=== PATIENT | male | born 1940 | race Caucasian/White ===

== ENCOUNTER 2019-02-24 10:47 | Emergency (ER) | payer MEDICARE, OTHER ==
--- NOTE | 2019-02-24 11:19 | RAD ---
XR Finger(s) Rt Min 2 View HISTORY:Injuries to the tips of the index middle and ring fingers. COMPARISON: None. FINDINGS: There are arthritic changes of the DIP joints. There is an old appearing fracture on the do rsal side of the head of the middle phalanx of the index finger, this is corticated and is felt to represent an older injury. Clinical correlation is recommended. IMPRESSION: Probable old fracture involving the distal aspect of the middle phalanx of the index fing er.
[2019-02-24] MEDS ORDERED: Adacel (T-DAP) 0.5 ML SYRINGE ONE (11:37)
[2019-02-24] MEDS ORDERED: HYDROcodone/Acetaminophen 5/325 mg Tablet ONE (11:37)
== END 2019-02-24 12:25 | disposition home or self-care (01) ==
LOC: ERS 10:47
DX: S61.210A Laceration without foreign body of right index finger without damage to nail, initial encounter (principal); F41.9 Anxiety disorder, unspecified; Z79.82 Long term (current) use of aspirin; Z79.899 Other long term (current) drug therapy; W27.1XXA Contact with garden tool, initial encounter
CPT/HCPCS: 90471; 90715

== ENCOUNTER 2019-04-27 09:33 | Outpatient (CLI) | payer MEDICARE, OTHER ==
--- NOTE | 2019-04-27 15:44 | NM ---
WHOLE BODY BONE SCAN WITH TRIPLE PHASE IMAGING THROUGH THE KNEES: 04/27/19 HISTORY: Pain due to internal orthopedic prosthetic device/graft. Left knee pain. RADIOPHARMACEUTICAL: 13.5 millicuries technetium 99m-MDP injected intravenously. FINDINGS: No abnormal blood flow or blood pooling is seen in either knee. Delayed images demonstrate increased uptake in the left knee consistent with postop changes of knee replacement. Mild increased uptake in the right knee is consistent with degenerative change. There is focal increased uptake in the right great toe. Increased uptake in the lower lumbar spine is likely due to degenerative change. Tracer excretion through the kidneys is within normal limits. IMPRESSION: 1. No evidence of infection or loosening involving the left knee arthroplasty. 2. Focal increased uptake in the right toe is nonspecific and may be due to trauma, arthritis, o r infection. Clinical and radiographic correlation is recommended. POS: ZIA
== END 2019-04-27 09:34 | disposition home or self-care (01) ==
LOC: NM 09:33
PROVIDERS: ATTEND Specialist
DX: T84.84XA Pain due to internal orthopedic prosthetic devices, implants and grafts, initial encounter (principal); Z96.652 Presence of left artificial knee joint
CPT/HCPCS: 78315; A9503

== ENCOUNTER 2019-07-09 14:31 | Outpatient (CLI) | payer MEDICARE, OTHER ==
--- NOTE | 2019-07-09 16:37 | MRI ---
MRI LUMBAR SPINE WITHOUT CONTRAST: HISTORY: Lumbar radiculopathy COMPARISON: None. FINDINGS: Appropriate T1 marrow signal intensity of the lumbar vertebrae. Lumbar spine vertebral body height i s maintained. No fracture. Combination of type I and type II Modic changes at L4-L5. Appropriate signal intensity of the paraspinal muscles. Appropriate signal intensity of the visualiz ed solid organs. Small cysts in the left and right kidney. The conus medullaris terminates at the inferior aspect of L1. T12-L1: No significant central canal stenosis or significant neural foraminal narrowing. L1-L2: Mild loss of disc space height. Minimal left and right paracentral disc bulge. No significa nt central canal stenosis or significant neural foraminal narrowing. L2-L3: Broad-based disc bulge and minimal ligament flavum thickening result in mild central canal st enosis. Mild bilateral facet hypertrophy. Mild right and moderate left foraminal narrowing. L3-L4: Mild to moderate loss of disc space height. Broad based disc bulge, ligamentum flavum thicke syl and facet hypertrophy result in mild central canal stenosis. Moderate right and mild to moderate left neural foraminal narrowing. L4-L5: Moderate loss of disc space height. Broad based disc bulge with a central disc protrusion. Mild to moderate central canal stenosis. Mild to moderate right and mild left foraminal narrowing. L5-S1: Desiccation with moderate loss of disc space height. Broad-based disc bulge, mild ligament f lavum thickening and facet hypertrophy result in mild central canal stenosis. Minimal inferior disc extrusion. Small amount of fluid in both facet joints. Mild bilateral neural foraminal narrowi ng. IMPRESSION: Degenerative changes of the lumbar spine, as described above. Transcribed Date/Time: 07/09/2019 5:41 PM
== END 2019-07-09 14:32 | disposition home or self-care (01) ==
LOC: BICMRI 14:31
PROVIDERS: ATTEND Anesthesiology
DX: M47.26 Other spondylosis with radiculopathy, lumbar region (principal); M48.061 Spinal stenosis, lumbar region without neurogenic claudication; M48.07 Spinal stenosis, lumbosacral region
CPT/HCPCS: 72148

== ENCOUNTER 2019-09-10 05:52 | Outpatient (CLI) | payer MEDICARE, OTHER ==
[2019-09-10 10:33] LABS: #Basophils 0.1 thou/uL (0.0-0.2); #Eosinphils 0.2 thou/uL (0.0-0.7); #Lymphocytes 1.8 thou/uL (1.20-3.40); #Monocytes 0.4 thou/uL (0.11-0.59); %Basophils 1.1 % (0.0-1.0); %Lymphocytes 24.1 % (21.0-51.0); %Monocytes 5.7 % (0.0-10.0); %Neutrophils 66.1 % (42.0-75.0); Hemoglobin 15.5 g/dL (14.0-18.0); Mean Corpuscular HGB CONC 33.9 g/dL (32.0-36.0); Mean Corpuscular Volume 88.5 fL (78.0-98.0); Mean Platelet Volume 7.3 fL (7.4-10.4); Platelet Count 240 thou/uL (130-400); RBC Distribution Width 12.8 % (11.5-14.5); Red Blood Cell (RBC) Count 5.16 mill/uL (4.70-6.10); White Blood Cell (WBC) Count 7.5 thou/uL (4.8-10.8)
[2019-09-10 10:39] LABS: Prothrombin Time 13.3 SEC (12.0-14.7)
[2019-09-10 10:58] LABS: ALT (SGPT) 11 U/L (8-55); AST (SGOT) 15 U/L (5-34); Albumin 4.5 g/dL (3.4-4.8); Alkaline Phosphatase 59 U/L (40-110); Anion Gap 11 mmol/L (10-20); BUN (Urea Nitrogen) 16 mg/dL (8.4-25.7); Bilirubin, Total 0.8 mg/dL (0.2-1.2); Calc. Creatinine Clearance 0 mL/min (70-130); Calcium 9.9 mg/dL (7.8-10.44); Carbon Dioxide 29 mmol/L (23-31); Cardiac Risk 8.1 (Less than 4.5); Chloride 103 mmol/L (98-107); Cholesterol 290 mg/dl (< 200 Desired); Estimated GFR-MDRD 61; Globulin 2.8 g/dL (2.4-3.5); Glucose 109 mg/dL (83-110); HDL Cholesterol 36 mg/dL (>60 Neg Risk); Potassium 4.4 mmol/L (3.5-5.1); Protein, Total 7.3 g/dL (5.8-8.1); Sodium 139 mmol/L (136-145); Triglycerides 407 mg/dL (Less than 150)
== END 2019-09-10 05:53 | disposition home or self-care (01) ==
LOC: LABBT 05:52
PROVIDERS: ATTEND Internal Medicine Cardiovascular Disease
DX: Z01.812 Encounter for preprocedural laboratory examination (principal); R07.9 Chest pain, unspecified
CPT/HCPCS: 80053; 80061; 85025; 85610; 85730

== ENCOUNTER 2019-09-13 05:53 | Day surgery (SDC) | payer MEDICARE, OTHER ==
[2019-09-10 09:53] VITALS: BMI 29.5
[2019-09-13] MEDS ORDERED: Lidocaine 1% (PF) 30 ML VIAL ONE (06:35)
[2019-09-13] MEDS ORDERED: Heparin (Artline) 1,000 ML ONE (06:35)
[2019-09-13] MEDS ORDERED: Fentanyl 100 MCG/2 ML VIAL ONE (07:38)
[2019-09-13] MEDS ORDERED: Heparin 10,000 UNITS/1 ML VIAL ONE (07:39)
[2019-09-13] MEDS ORDERED: Midazolam HCl 2 mg/2 ml Vial ONE (07:39)
[2019-09-13] MEDS ORDERED: Nitroglycerin 100MG/250ML BOT 250 ML ONE (07:39)
[2019-09-13] MEDS ORDERED: Verapamil 5 MG/2 ML VIAL ONE (08:31)
[2019-09-13] MEDS ORDERED: Iopamidol 370 76% 100 ML VIAL ONE (10:17)
--- NOTE | 2019-09-13 14:04 | CON ---
DATE OF CONSULTATION: HISTORY OF PRESENT ILLNESS: This is a 78-year-old gentleman, relatively in good health, however, noticed when he carried his granddaughter, he would get chest tightness and pain. He saw Dr. Martins, who felt that his blood pressure was mildly elevated and started on medication. A stress test showed moderate anterior ischemia. The patient continued to have some symptoms, although they were improved with Imdur. He was referred for cardiac catheterization. PAST MEDICAL HISTORY: Includes untreated hyperlipidemia due to statin intolerance and anxiety disorder. PAST SURGICAL HISTORY: Includes cancer of the lip removed, left knee replacement with chronic pain, colon removal, vasectomy, and appendectomy. FAMILY HISTORY: He has a family history of heart disease. SOCIAL HISTORY: He is . He is a nonsmoker. He is retired, having been in the 20 years, worked for [employer] and various jobs. MEDICATIONS: Prior to visit with Dr. Martins included aspirin as well as Xanax 0.5 mg daily. Since being seen, he started taking [place] fish capsules, pantoprazole 40 mg daily, Plavix 75 a day, Imdur ER 30 a day, and lisinopril 5 mg a day. ALLERGIES: HE HAS ALLERGIES TO GABAPENTIN AND LYRICA, BOTH CAUSED HIM SKIN REACTIONS. PHYSICAL EXAMINATION: VITAL SIGNS: His weight is about 202 pounds, height 5 feet 9 inches. Heart rate 70 to 80, blood pressure 140 NECK: No carotid bruits (negative carotid ultrasound in 2017). CARDIAC: Regular rate and rhythm. No murmurs. LUNGS: Clear to auscultation. ABDOMEN: Soft and nontender. EXTREMITIES: He has palpable pedal pulses in both feet. He is left arm dominant with neg allens using plethysmography. Cardiac echo in Dr. Martins's office revealed normal EF and trace AI, trace MR, and trace TR. Cardiac cath showed severe three-vessel disease with a small circ with significant disease with probably non-bypassable ramus with significant disease that can be grafted possibly at the radial. He has an LAD with a [id number] disease proximally and then a critical lesion in the midportion. There is a diagonal branch with both branches having significant disease that probably can be grafted. The main right coronary artery has a 90% mid lesion, then a smaller PDA with about 60% stenosis. Possible targets include the second PDA branch and possibly the first PDA remained right. Went over procedure risks, complications, and expectations and we will intervene next week after he has been off his Plavix for 5 days. Job ID: [id number] [facility]ITAL[facility]ena
== END 2019-09-13 12:14 | disposition home or self-care (01) ==
LOC: CCL 05:53
PROVIDERS: ATTEND Internal Medicine Cardiovascular Disease
PROC: 4A023N7 Measurement of Cardiac Sampling and Pressure, Left Heart, Percutaneous Approach (ICD-10-PCS; principal; 2019-09-13)
PROC: B2111ZZ Fluoroscopy of Multiple Coronary Arteries using Low Osmolar Contrast (ICD-10-PCS; 2019-09-13)
DX: I25.10 Atherosclerotic heart disease of native coronary artery without angina pectoris (principal); I10 Essential (primary) hypertension; E78.00 Pure hypercholesterolemia, unspecified; E78.5 Hyperlipidemia, unspecified; F41.9 Anxiety disorder, unspecified; Z79.02 Long term (current) use of antithrombotics/antiplatelets; Z79.82 Long term (current) use of aspirin; Z79.899 Other long term (current) drug therapy
CPT/HCPCS: 93458; 99152; 99153; C1769; J1644; J2001; J2250; J3010

== ENCOUNTER 2019-09-17 06:18 | Inpatient (IN) | payer MEDICARE, OTHER ==
[2019-09-17] MEDS ORDERED: Albumin 5% 0 ML ONE (06:37)
[2019-09-17] MEDS ORDERED: Fentanyl 250 MCG/5 ML VIAL ONE (07:06)
[2019-09-17] MEDS ORDERED: Vecuronium 10 MG VIAL ONE ×2 (07:07→09:32)
[2019-09-17] MEDS ORDERED: Midazolam HCl 5 mg/5 ml Vial ONE (07:07)
[2019-09-17] MEDS ORDERED: Dexmedetomidine 200 MCG/2 ML VIAL ONE (07:07)
[2019-09-17] MEDS ORDERED: Heparin 10,000 UNITS/1 ML VIAL 30,000 UNITS in Sodium Chloride 0.9% 1,000 ML FS SCH (07:30)
[2019-09-17] MEDS ORDERED: Midazolam HCl 2 mg/2 ml Vial ONE (07:42)
[2019-09-17] MEDS ORDERED: Thrombin 5000 UNITS/5 ML VIAL ONE (09:32)
[2019-09-17] MEDS ORDERED: Papaverine 60 MG/2 ML VIAL ONE (09:32)
[2019-09-17] MEDS ORDERED: Protamine Sulfate 250 MG/25 ML VIAL ONE (09:32)
[2019-09-17] MEDS ORDERED: Cardioplegic Soln 1,000 ML BAG ONE (09:32)
[2019-09-17] MEDS ORDERED: Glycopyrrolate 0.2 MG/ML 5 ML SYRINGE ONE (09:32)
[2019-09-17] MEDS ORDERED: Dexamethasone 20 MG/5 ML VIAL ONE (09:32)
[2019-09-17] MEDS ORDERED: Sodium Bicarb 50 MEQ/50 ML Abboject 8.4% SYRINGE ONE (09:32)
[2019-09-17] MEDS ORDERED: Nitroglycerin 50 MG/250 ML BOT ONE (09:32)
[2019-09-17] MEDS ORDERED: Heparin 30,000 units/30 ml VIAL ONE (09:32)
[2019-09-17] MEDS ORDERED: Norepinephrine 4 MG/4 ML VIAL ONE (09:32)
[2019-09-17] MEDS ORDERED: Potassium Chloride 60 MEQ/30 ML VIAL ONE (09:32)
[2019-09-17] MEDS ORDERED: Ondansetron PF 4 MG/2 ML Vial ONE (09:32)
[2019-09-17] MEDS ORDERED: Calcium Chloride 1 GM/10 ML Abboject SYRINGE ONE (09:32)
[2019-09-17] MEDS ORDERED: Heparin 5,000 UNITS/ML VIAL ONE (09:32)
[2019-09-17] MEDS ORDERED: Lidocaine 2% PF 100 mg/5 ml Syringe ONE (09:32)
[2019-09-17] MEDS ORDERED: Magnesium Sulfate 1 GM/2 ML VIAL ONE (09:32)
[2019-09-17] MEDS ORDERED: Aminocaproic Acid 5 GM/20 ML VIAL ONE (09:32)
[2019-09-17] MEDS ORDERED: Lidocaine 1% PF 5 ML VIAL ONE (09:32)
[2019-09-17] MEDS ORDERED: PROPOFOL 200 MG/20 ML VIAL ONE (09:32)
[2019-09-17] MEDS ORDERED: PHENYLEPHRINE-NS 100 MCG/ML 10 ML SYRINGE ONE (12:28)
[2019-09-17] MEDS ORDERED: Mag-Al 1200 mg/1200 mg/30 ML UDCUP PO PRN (13:29)
[2019-09-17] MEDS ORDERED: HYDROcodone/Acetaminophen 5/325 mg Tablet PO PRN (13:29)
[2019-09-17] MEDS ORDERED: niCARdipine 25 MG in Sodium Chloride 0.9% 250 ML 250 ML IVPB PRN (13:29)
[2019-09-17] MEDS ORDERED: Post-Op Insulin Drip Protocol IVPB ONE (13:29)
[2019-09-17] MEDS ORDERED: Norepinephrine 8 MG/0.9% NS 250 ML IVPB PRN (13:29)
[2019-09-17] MEDS ORDERED: Acetaminophen 325 MG TAB PO PRN (13:29)
[2019-09-17] MEDS ORDERED: Hetastarch 6% 500 ML 500 ML IVPB PRN (13:29)
[2019-09-17] MEDS ORDERED: Morphine 2 MG/ML SYRINGE SLOW IVP PRN (13:29)
[2019-09-17] MEDS ORDERED: DOPamine 400 MG/D5W 250 ML 250 ML IVPB PRN (13:29)
[2019-09-17] MEDS ORDERED: Fentanyl 100 MCG/2 ML VIAL SLOW IVP PRN (13:29)
[2019-09-17] MEDS ORDERED: Guaifenesin DM 100-10/5 ML UDCUP PO PRN (13:29)
[2019-09-17] MEDS ORDERED: Potassium Chloride 20 MEQ/100 ML PREMIX BAG IVPB PRN (13:29)
[2019-09-17] MEDS ORDERED: Bisacodyl 10 MG SUPP PR PRN (13:29)
[2019-09-17] MEDS ORDERED: Ondansetron PF 4 MG/2 ML Vial IVP PRN (13:29)
[2019-09-17] MEDS ORDERED: Promethazine HCl 25 MG/ML VIAL IM PRN (13:29)
[2019-09-17] MEDS ORDERED: Bisacodyl 5 MG TAB PO PRN (13:29)
[2019-09-17] MEDS ORDERED: hydrALAZINE 20 MG/ML VIAL SLOW IVP PRN (13:29)
[2019-09-17] MEDS ORDERED: Nitroglycerin 50 MG/250 ML BOT 250 ML IVPB PRN (13:29)
[2019-09-17 13:41] LABS: #Basophils 0.1 thou/uL (0.0-0.2); #Eosinphils 0.1 thou/uL (0.0-0.7); #Lymphocytes 1.2 thou/uL (1.20-3.40); #Monocytes 0.3 thou/uL (0.11-0.59); #Neutrophils 10.1 thou/uL (1.40-6.50); %Basophils 0.5 % (0.0-1.0); %Eosinophils 1.1 % (0.0-10.0); %Lymphocytes 10.5 % (21.0-51.0); %Monocytes 2.5 % (0.0-10.0); %Neutrophils 85.5 % (42.0-75.0); Hemoglobin 11.7 g/dL (14.0-18.0); Mean Corpuscular HGB CONC 33.8 g/dL (32.0-36.0); Mean Platelet Volume 7.7 fL (7.4-10.4); Platelet Count 145 thou/uL (130-400); RBC Distribution Width 12.5 % (11.5-14.5); Red Blood Cell (RBC) Count 3.91 mill/uL (4.70-6.10); White Blood Cell (WBC) Count 11.9 thou/uL (4.8-10.8)
[2019-09-17 13:42] LABS: INR-International Normal Ratio 1.3; Prothrombin Time 16.5 SEC (12.0-14.7)
[2019-09-17 13:43] LABS: PTT 29.7 SEC (22.9-36.1)
--- NOTE | 2019-09-17 13:44 | RAD ---
Portable frontal chest radiograph: 09/17/2019 COMPARISON: 03/25/2017 HISTORY: Evaluate chest following open heart surgery FINDINGS: New midline sternotomy wires. There is a right-sided vascular catheter with distal tip over lying the region of the right atrium. Cardiac silhouette is prominent. There is a drainage catheter overlying the left lung base. No lobar consolidation or alveolar edema. IMPRESSION: Postoperative changes as detailed above.
[2019-09-17] MEDS ORDERED: Dextrose 50% Abboject 50 ML SYRINGE SLOW IVP PRN (13:57)
[2019-09-17] MEDS ORDERED: Insulin Regular 300 UNITS/3 ML VIAL SC PRN (13:57)
[2019-09-17] MEDS ORDERED: Dextrose 5% in Water 1,000 ML IV PRN (13:57)
[2019-09-17] MEDS ORDERED: HUMULIN R 100 UNITS in Sodium Chloride 0.9% 100 ML IVPB SCH (13:57)
[2019-09-17] MEDS ORDERED: Magnesium 2 GM/50 ML 2 GM in Premix Bag 1 BAG IVPB SCH (14:00)
[2019-09-17 14:09] LABS: Anion Gap 10 mmol/L (10-20); BUN (Urea Nitrogen) 18 mg/dL (8.4-25.7); Calc. Creatinine Clearance 89 mL/min (70-130); Calcium 7.6 mg/dL (7.8-10.44); Carbon Dioxide 22 mmol/L (23-31); Chloride 109 mmol/L (98-107); Estimated GFR-MDRD 80; Glucose 134 mg/dL (83-110); Potassium 4.1 mmol/L (3.5-5.1); Sodium 137 mmol/L (136-145)
[2019-09-17] MEDS: CEFAZOLIN 2 GM in Premix Bag 1 BAG IVPB SCH (16:24)
[2019-09-17] MEDS: Lactated Ringer's 1,000 ML IV SCH (16:36)
[2019-09-17] MEDS: Ketorolac Tromethamine 30 MG/ML VIAL IVP SCH (17:07)
[2019-09-17 19:17] LABS: Hemoglobin 13.7 g/dL (14.0-18.0)
[2019-09-17 19:30] LABS: Potassium 4.4 mmol/L (3.5-5.1)
--- NOTE | 2019-09-17 19:30 | CON ---
DATE OF CONSULTATION: 09/17/2019 REASON FOR CONSULTATION: Post CABG. HISTORY OF PRESENT ILLNESS: Mr. Duron is a very pleasant 78-year-old white gentleman, who comes to the hospital for planned CABG. He had a heart catheterization about a week ago. He was found to have multivessel disease. He was brought today for CABG. He underwent said procedure earlier today by Dr. Mendez. He did well. He is now extubated on my evaluation, only on a very low-dose dobutamine and his blood pressure is in the 130s, so this will certainly be weaned off pretty soon. He only admits to just soreness all over the place, but no other issues otherwise. PAST MEDICAL HISTORY: 1. Coronary artery disease. 2. 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 3. Anxiety disorder. PAST SURGICAL HISTORY: 1. Vasectomy. 2. Colon resection. 3. Appendectomy. 4. Removal of lip cancer. SOCIAL HISTORY: No alcohol, tobacco, or drugs. FAMILY HISTORY: No early coronary artery disease. REVIEW OF SYSTEMS: A 12-point review of systems was done and was all negative unless stated in the history of present illness. ALLERGIES: NO KNOWN DRUG ALLERGIES. OUTPATIENT MEDICATIONS: Include; 1. Alprazolam. 2. Imdur 30 mg a day. 3. Clopidogrel 75 mg a day. 4. Aspirin 81 a day. 5. Pantoprazole 40 mg a day. 6. Lisinopril 5 mg a day. 7. Krill oil daily. ALLERGIES: 1. GABAPENTIN. 2. LYRICA. PHYSICAL EXAMINATION: VITAL SIGNS: Temperature 96.5, pulse 81, respiratory rate 18, saturating 99% on room air, blood pressure 113/62. GENERAL: Awake, alert, oriented x3. No distress. HEENT: Normocephalic, atraumatic. NECK: Supple. LUNGS: Clear. CARDIOVASCULAR: S1, S2. Three-component rub. ABDOMEN: Soft. EXTREMITIES: Trace edema. SKIN: Warm and dry. LABORATORY DATA: Laboratory work was reviewed. CBC with a white count of 11, hemoglobin 11.7, hematocrit 34, and platelet count of 145. Coags were reviewed. Chemistries were unremarkable. Glucose was 134, calcium was 7.6. Chest x-ray was reviewed. ASSESSMENT: 1. Multivessel coronary artery disease, status post coronary artery bypass grafting. 2. Hyperlipidemia. PLAN: 1. Continue aspirin. He is intolerant to statins, so we will hold on this for now. He will probably need Repatha or Praluent as an outpatient. 2. Continue supportive care. 3. Dopamine to be weaned off in the next 2 hours. 4. We will start physical therapy in the next few days. Thank you for letting us participate in the care of your patient. Job ID: [id number]
[2019-09-17] MEDS: Famotidine/PF 20 mg/2ml Vial SLOW IVP SCH (22:17)
[2019-09-17] MEDS: Fentanyl 100 MCG/2 ML VIAL SLOW IVP PRN (23:00)
[2019-09-18] MEDS: CEFAZOLIN 2 GM in Premix Bag 1 BAG IVPB SCH ×2 (00:14→07:17)
[2019-09-18] MEDS: Ketorolac Tromethamine 30 MG/ML VIAL IVP SCH ×4 (00:15→18:01)
[2019-09-18] MEDS: Fentanyl 100 MCG/2 ML VIAL SLOW IVP PRN (04:02)
[2019-09-18] MEDS: Lactated Ringer's 1,000 ML IV SCH ×2 (04:05→18:42)
[2019-09-18] MEDS: HYDROcodone/Acetaminophen 5/325 mg Tablet PO PRN ×2 (04:12→13:21)
[2019-09-18 04:29] LABS: #Lymphocytes 1.1 thou/uL (1.20-3.40); #Monocytes 0.8 thou/uL (0.11-0.59); #Neutrophils 8.6 thou/uL (1.40-6.50); %Basophils 0.2 % (0.0-1.0); %Eosinophils 0.1 % (0.0-10.0); %Lymphocytes 10.2 % (21.0-51.0); %Monocytes 7.3 % (0.0-10.0); %Neutrophils 82.2 % (42.0-75.0); Hemoglobin 12.7 g/dL (14.0-18.0); Mean Corpuscular HGB CONC 33.1 g/dL (32.0-36.0); Mean Corpuscular Hemoglobin 29.5 pg (27.0-31.0); Mean Corpuscular Volume 89.2 fL (78.0-98.0); Mean Platelet Volume 7.6 fL (7.4-10.4); Platelet Count 188 thou/uL (130-400); RBC Distribution Width 12.6 % (11.5-14.5); White Blood Cell (WBC) Count 10.4 thou/uL (4.8-10.8)
[2019-09-18 04:59] LABS: Anion Gap 14 mmol/L (10-20); BUN (Urea Nitrogen) 18 mg/dL (8.4-25.7); Calc. Creatinine Clearance 74 mL/min (70-130); Carbon Dioxide 19 mmol/L (23-31); Chloride 108 mmol/L (98-107); Estimated GFR-MDRD 64; Glucose 161 mg/dL (83-110); Potassium 4.3 mmol/L (3.5-5.1); Sodium 137 mmol/L (136-145)
[2019-09-18] MEDS ORDERED: Cyclobenzaprine 10 MG TAB PO SCH (06:15)
--- NOTE | 2019-09-18 08:39 | RAD ---
CHEST ONE VIEW: INDICATIONS: History of open heart surgery. COMPARISON: Prior exam dated 09/17/2019. FINDINGS/IMPRESSION: Cardiomegaly and right subclavian central venous catheter is stable. Left-sided thoracostomy tube is unchanged. No pneumothorax is evident. POS: TPC
[2019-09-18] MEDS: Polyethylene Glycol 3350 17 GM Packet PO SCH (08:42)
[2019-09-18] MEDS: Famotidine/PF 20 mg/2ml Vial SLOW IVP SCH (08:42)
--- NOTE | 2019-09-18 08:44 | OP ---
DATE OF PROCEDURE: 09/17/2019 PREOPERATIVE DIAGNOSIS: Coronary artery disease. PROCEDURES PERFORMED: Coronary artery bypass graft x5, left internal mammary artery to the left anterior descending, saphenous vein sequential graft to the right PDA, 1.5 mm right posterior lateral, 1.5 mm saphenous vein sequential to the diagonal branch 1 and 2, and saphenous vein graft to an intramyocardial ramus. [employer]: Juan Diego. TRANSFUSION: None. DESCRIPTION OF PROCEDURE: After adequate anesthesia had been obtained, I performed an endovascular vein harvest of the left greater saphenous vein after prepping and draping. Median sternotomy was then performed, following which the left internal mammary was harvested entering the left pleura and one small area. The mammary was divided after heparinization and passed posterior to the thymus gland, treated with papaverine. Aorta and right atrium were cannulated. Cardiopulmonary bypass begun. Aorta was cross clamped and after a liter of cold blood cardioplegia, 4 distal anastomosis were completed including sequential PDA posterior and lateral and sequential diagonal one and diagonal two. Across-clamp was removed. Partial occluding clamp placed in the right coronary and ramus. The vein grafts were anastomosed to the aortic root and marked with rings. Following removal of the partial occluding clamp, the diagonal vein grafts were anastomosed to the side of the ramus graft. The patient was weaned from cardiopulmonary bypass. Cannula was removed and protamine was given systemically. Grafts lie nicely in the pericardium. Mediastinal and left pleural drains were placed and the sternum was reapproximated with #7 interrupted wire using vancomycin paste, platelet rich blood and platelet poor plasma on the sternum prior to closure with sternal wires. Subcutaneous tissue and skin were closed in layers. Job ID: [id number]
[2019-09-18] MEDS ORDERED: Aspirin 325 MG TAB PO SCH (09:00)
[2019-09-18] MEDS ORDERED: Prevnar 13-Val Conj/PF 0.5 ML SYRINGE IM ONE (12:00)
[2019-09-18] MEDS ORDERED: FLU VACC TS2019-20(65YR UP)/PF 180 MCG/0.5 ML SYRINGE IM ONE (12:00)
--- NOTE | 2019-09-18 18:29 | PDOC.CPN ---
- Subjective Date: 09/18/19 Time: 18:28 Interval history: He is doing much better. No BM yet but passing gas. He is sitting up eating dinner on my evaluation. - Review of Systems General: denies: fever/chills, weight/appetite/sleep changes, night sweats, fatigue Respiratory: denies: cough, congestion, shortness of breath, exercise intolerance Cardiovascular: denies: chest pain, palpitation, edema, paroxysmal nocturnal dyspnea, orthopnea Gastrointestinal: denies: nausea, vomiting, diarrhea, constipation, abd pain, GI bleeding Musculoskeletal: denies: pain, tenderness, stiffness, swelling, arthritis/ arthralgias Neurological: denies: numbness, syncope, seizure, weakness - Objective Allergies/Adverse Reactions: Allergies Allergy/AdvReac Type Severity Reaction Status Date / Time gabapentin Allergy Verified 09/14/19 16:40 pregabalin [From Lyrica] Allergy Verified 09/14/19 16:40 Visit Medications: Current Medications Acetaminophen (Tylenol) 650 mg PO Q6H PRN PRN Reason: Headache/Fever/Mild Pain (1-3) Hydrocodone Bitart/Acetaminophen ([place] 5/325) 1 tab PO Q4H PRN PRN Reason: Moderate Pain (4-6) Hydrocodone Bitart/Acetaminophen ([place] 5/325) 2 tab PO Q4H PRN PRN Reason: Severe Pain (7-10) Last Admin: 09/18/19 13:21 Dose: 2 tab Al Hydroxide/Mg Hydroxide (Maalox) 30 ml PO Q4H PRN PRN Reason: Indigestion Albuterol/Ipratropium (Duoneb) 3 ml NEB Q6H PRN PRN Reason: SHORTNESS OF BREATH Aspirin (Aspirin) 325 mg PO DAILY [facility] Last Admin: 09/18/19 08:41 Dose: 325 mg Bisacodyl (Dulcolax) 10 mg PO Q12H PRN PRN Reason: Constipation Bisacodyl (Dulcolax) 10 mg [place] Q12H PRN PRN Reason: Constipation Dextrose/Water (Dextrose 50%) 25 gm SLOW IVP PRN PRN PRN Reason: PER HYPOGLYCEMIC PROTOCOL Famotidine (Pepcid) 20 mg SLOW IVP Q12HR [facility] Last Admin: 09/18/19 08:42 Dose: 20 mg Fentanyl (Sublimaze) 25 mcg SLOW IVP Q2H PRN PRN Reason: Moderate Pain (4-6) Stop: 09/19/19 12:39 Last Admin: 09/18/19 04:02 Dose: 25 mcg Fentanyl (Sublimaze) 50 mcg SLOW IVP Q2H PRN PRN Reason: Severe Pain (7-10) Stop: 09/19/19 12:39 Last Admin: 09/17/19 14:29 Dose: 50 mcg Glucagon (Glucagon) 1 mg SC PRN PRN PRN Reason: PER HYPOGLYCEMIC PROTOCOL Guaifenesin/Dextromethorphan (Robitussin Dm) 15 ml PO Q4H PRN PRN Reason: Cough Hydralazine HCl (Apresoline) 10 mg SLOW IVP Q6H PRN PRN Reason: To Maintain SBP< 140mmHG Dopamine HCl/Dextrose (Dopamine 400 Mg/D5w 250 Ml) 250 mls @ 0 mls/hr IVPB PRN PRN; Protocol PRN Reason: To maintain SBP > 90 mmHG Last Admin: 09/17/19 16:34 Dose: 250 mls Norepinephrine Bitartrate (Levophed) 250 mls @ 0 mls/hr IVPB PRN PRN; Protocol PRN Reason: To maintain SBP > 90 mmHG Nicardipine HCl 25 mg/ Sodium (Chloride) 260 mls @ 0 mls/hr IVPB INF PRN; Protocol PRN Reason: To Maintain SBP< 140mmHG Nitroglycerin/Dextrose (Nitroglycerin 50 Mg/250 Ml Bot) 250 mls @ 0 mls/hr IVPB PRN PRN; Protocol PRN Reason: To Maintain SBP< 140mmHG Insulin Human Regular 100 (units/ Sodium Chloride) 101 mls @ 0 mls/hr IVPB INF ADAM; Protocol Dextrose/Water (D5w) 1,000 mls @ 0 mls/hr IV INF PRN PRN Reason: PRN HYPOGLYCEMIC PROTOCOL Lactated Ringer's (Lactated Ringer's) 1,000 mls @ 75 mls/hr IV .[id number] ADAM Last Admin: 09/18/19 04:05 Dose: 1,000 mls Insulin Human Regular (Humulin R) 0 units SC Q4H PRN; Protocol PRN Reason: POST OP SLIDING SCALE Morphine Sulfate (Morphine) 2 mg SLOW IVP Q15MIN PRN PRN Reason: Severe Pain (7-10) Ondansetron HCl (Zofran) 4 mg IVP Q6H PRN PRN Reason: Nausea/Vomiting Last Admin: 09/17/19 16:38 Dose: 4 mg Polyethylene Glycol (Miralax) 17 gm PO DAILY [facility] Last Admin: 09/18/19 08:42 Dose: 17 gm Potassium Chloride (Kcl) 20 meq IVPB PRN PRN PRN Reason: K level </= 4.0 Promethazine HCl (Phenergan) 6.25 mg IM Q4H PRN PRN Reason: Nausea/Vomiting Vital Signs & Weight: Vital Signs Temp Pulse Ox 09/18/19 15:00 98.1 F 09/18/19 11:00 98.5 F 09/18/19 08:00 99 09/18/19 07:00 98.6 F 96 Weight 205 lb 11.06 oz - Physical Exam General: alert & oriented x3 HEENT: mucus membranes moist Neck: supple neck Cardiac: regular rate and rhythm Lungs: normal breath sounds Neuro: grossly intact Abdomen: active bowel sounds Extremities: no edema Skin: clear Musculoskeletal: no pain - Labs Result Diagrams: 09/18/19 04:05 09/18/19 04:05 - Telemetry Sinus rhythms and dysrhythmias: sinus rhythm - Assessment/Plan Assessment/Plan: 1. Multivessel CAD. 2. S/P CABG x 5 LEVY to LAD, SVG sequential to RPDA and PL, SVG sequential to D1 and D2, SVG to Intramyocardial Ramus. 3. Hyperlipidemia. PLAN: - Doing well. - Increase PT as tolerated. - Aspirin and station for life. - BB and ACEI once BP allows.
[2019-09-18] MEDS: Atorvastatin Calcium 40 MG TAB PO SCH (20:30)
[2019-09-18] MEDS ORDERED: Famotidine 20 MG TAB PO SCH (21:00)
[2019-09-19 04:01] LABS: #Basophils 0.1 thou/uL (0.0-0.2); #Eosinphils 0.1 thou/uL (0.0-0.7); #Lymphocytes 1.8 thou/uL (1.20-3.40); #Monocytes 0.8 thou/uL (0.11-0.59); #Neutrophils 8.1 thou/uL (1.40-6.50); %Basophils 0.5 % (0.0-1.0); %Eosinophils 0.9 % (0.0-10.0); %Lymphocytes 16.4 % (21.0-51.0); %Monocytes 7.3 % (0.0-10.0); %Neutrophils 74.8 % (42.0-75.0); Hemoglobin 12.1 g/dL (14.0-18.0); Mean Corpuscular HGB CONC 33.9 g/dL (32.0-36.0); Mean Corpuscular Hemoglobin 30.4 pg (27.0-31.0); Mean Corpuscular Volume 89.7 fL (78.0-98.0); Mean Platelet Volume 7.6 fL (7.4-10.4); Platelet Count 156 thou/uL (130-400); RBC Distribution Width 12.6 % (11.5-14.5); Red Blood Cell (RBC) Count 3.98 mill/uL (4.70-6.10); White Blood Cell (WBC) Count 10.9 thou/uL (4.8-10.8)
[2019-09-19 04:18] LABS: Anion Gap 12 mmol/L (10-20); BUN (Urea Nitrogen) 21 mg/dL (8.4-25.7); Calc. Creatinine Clearance 83 mL/min (70-130); Carbon Dioxide 23 mmol/L (23-31); Chloride 105 mmol/L (98-107); Estimated GFR-MDRD 74; Glucose 127 mg/dL (83-110); Potassium 4.3 mmol/L (3.5-5.1); Sodium 136 mmol/L (136-145)
[2019-09-19 05:55] VITALS: BMI 30.2
[2019-09-19] MEDS ORDERED: Bisacodyl 10 MG SUPP PR PRN (07:18)
[2019-09-19] MEDS ORDERED: HYDROcodone/Acetaminophen 5/325 mg Tablet PO PRN (07:18)
[2019-09-19] MEDS ORDERED: Fentanyl 100 MCG/2 ML VIAL SLOW IVP PRN (07:18)
[2019-09-19] MEDS ORDERED: Guaifenesin DM 100-10/5 ML UDCUP PO PRN (07:18)
[2019-09-19] MEDS ORDERED: Acetaminophen 325 MG TAB PO PRN (07:18)
[2019-09-19] MEDS ORDERED: Mag-Al 1200 mg/1200 mg/30 ML UDCUP PO PRN (07:18)
[2019-09-19] MEDS ORDERED: Mineral Oil ENEMA PR PRN (07:18)
[2019-09-19] MEDS ORDERED: Nitroglycerin 0.4 MG TAB (25 Tab Bottle) SL PRN (07:18)
[2019-09-19] MEDS ORDERED: Bisacodyl 5 MG TAB PO PRN (07:18)
[2019-09-19] MEDS ORDERED: Ondansetron PF 4 MG/2 ML Vial IVP PRN (07:18)
[2019-09-19] MEDS: Famotidine 20 MG TAB PO SCH ×2 (08:15→20:37)
[2019-09-19] MEDS: Furosemide 40 MG TAB PO SCH (08:15)
[2019-09-19] MEDS: Polyethylene Glycol 3350 17 GM Packet PO SCH (08:15)
[2019-09-19] MEDS: Potassium Chloride 10 MEQ TAB PO SCH (08:15)
[2019-09-19] MEDS: Aspirin 325 mg Enteric Coated Tablet PO SCH (08:15)
--- NOTE | 2019-09-19 08:33 | RAD ---
PORTABLE CHEST 1 VIEW: DATE: 09/19/2019. TIME: 4:40 a.m. HISTORY: Postop open heart surgery. FINDINGS/IMPRESSION: No significant interval change is seen since the previous day's exam. POS: ZIA
--- NOTE | 2019-09-19 17:41 | PDOC.CPN ---
- Subjective Date: 09/19/19 Time: 17:39 Interval history: He is doing well. He denies any chest pain, tightness, pressure. He has not had a BM but is passing gas. - Review of Systems General: denies: fever/chills, weight/appetite/sleep changes, night sweats, fatigue Respiratory: denies: cough, congestion, shortness of breath, exercise intolerance Cardiovascular: denies: chest pain, palpitation, edema, paroxysmal nocturnal dyspnea, orthopnea Gastrointestinal: denies: nausea, vomiting, diarrhea, constipation, abd pain, GI bleeding Musculoskeletal: denies: pain, tenderness, stiffness, swelling, arthritis/ arthralgias Neurological: denies: numbness, syncope, seizure, weakness - Objective Allergies/Adverse Reactions: Allergies Allergy/AdvReac Type Severity Reaction Status Date / Time gabapentin Allergy Verified 09/14/19 16:40 pregabalin [From Lyrica] Allergy Verified 09/14/19 16:40 Visit Medications: Current Medications Acetaminophen (Tylenol) 650 mg PO Q6H PRN PRN Reason: Headache/Fever or Pain Hydrocodone Bitart/Acetaminophen ([place] 5/325) 1 tab PO Q4H PRN PRN Reason: Moderate Pain (4-6) Hydrocodone Bitart/Acetaminophen ([place] 5/325) 2 tab PO Q4H PRN PRN Reason: Severe Pain (7-10) Al Hydroxide/Mg Hydroxide (Maalox) 30 ml PO Q4H PRN PRN Reason: Indigestion Alprazolam (Xanax) 0.5 mg PO [facility] Aspirin (Ecotrin) 325 mg PO DAILY [facility] Last Admin: 09/19/19 08:15 Dose: 325 mg Atorvastatin Calcium (Lipitor) 40 mg PO HS [facility] Last Admin: 09/18/19 20:30 Dose: 40 mg Bisacodyl (Dulcolax) 10 mg PO Q12H PRN PRN Reason: Constipation Bisacodyl (Dulcolax) 10 mg [place] Q12H PRN PRN Reason: Constipation Famotidine (Pepcid) 20 mg PO BID [facility] Last Admin: 09/19/19 08:15 Dose: 20 mg Fentanyl (Sublimaze) 25 mcg SLOW IVP Q2H PRN PRN Reason: Moderate breakthrough pain Furosemide (Lasix) 40 mg PO DAILY [facility] Last Admin: 09/19/19 08:15 Dose: 40 mg Guaifenesin/Dextromethorphan (Robitussin Dm) 15 ml PO Q4H PRN PRN Reason: Cough Mineral Oil (Fleet Mineral Oil) 133 ml [place] DAILYPRN PRN PRN Reason: Constipation Nitroglycerin (Nitrostat) 0.4 mg SL Q5MIN PRN PRN Reason: Chest Pain Ondansetron HCl (Zofran) 4 mg IVP Q6H PRN PRN Reason: Nausea/Vomiting Polyethylene Glycol (Miralax) 17 gm PO DAILY [facility] Last Admin: 09/19/19 08:15 Dose: 17 gm Potassium Chloride (Klor-Con 10) 10 meq PO QAM-WM [facility] Last Admin: 09/19/19 08:15 Dose: 10 meq Vital Signs & Weight: Vital Signs Temp Pulse Pulse Pulse Resp BP BP 09/19/19 14:32 99.8 F H 100 16 09/19/19 13:47 124 H 96 152/86 H 141/77 H 09/19/19 12:00 99.1 F 09/19/19 09:10 92 115 H 129/72 163/81 H 09/19/19 08:00 100.2 F H BP Pulse Ox Pulse Ox Pulse Ox 09/19/19 14:32 149/72 H 96 09/19/19 13:47 98 93 L 09/19/19 12:00 09/19/19 09:10 96 96 09/19/19 08:00 97 Weight 198 lb 6.656 oz - Physical Exam General: alert & oriented x3 HEENT: mucus membranes moist Neck: supple neck Cardiac: regular rate and rhythm, no murmur Lungs: clear to auscultation Neuro: grossly intact Abdomen: active bowel sounds, soft, non-tender Extremities: no edema Skin: clear Musculoskeletal: no pain - Labs Result Diagrams: 09/19/19 03:50 09/19/19 03:50 - Telemetry Sinus rhythms and dysrhythmias: sinus rhythm - Assessment/Plan Assessment/Plan: 1. Multivessel CAD. 2. S/P CABG x 5 LEVY to LAD, SVG sequential to RPDA and PL, SVG sequential to D1 and D2, SVG to Intramyocardial Ramus. 3. Hyperlipidemia. PLAN: - Doing well. - Increase PT as tolerated. - Aspirin and station for life. - Will start low dose BB tomorrow and ACEI tomorrow if BP still adequate.
[2019-09-19] MEDS: HYDROcodone/Acetaminophen 5/325 mg Tablet PO PRN (18:30)
[2019-09-19] MEDS: ALPRAZolam 0.5 MG TAB PO SCH (20:37)
[2019-09-19] MEDS: Atorvastatin Calcium 40 MG TAB PO SCH (20:37)
[2019-09-20] MEDS: Carvedilol 3.125 MG TAB PO SCH ×2 (08:32→16:18)
[2019-09-20] MEDS: Aspirin 325 mg Enteric Coated Tablet PO SCH (08:33)
[2019-09-20] MEDS: Furosemide 40 MG TAB PO SCH (08:33)
[2019-09-20] MEDS: Potassium Chloride 10 MEQ TAB PO SCH (08:33)
[2019-09-20] MEDS: Famotidine 20 MG TAB PO SCH ×2 (08:33→21:31)
[2019-09-20] MEDS: Polyethylene Glycol 3350 17 GM Packet PO SCH (08:33)
--- NOTE | 2019-09-20 18:18 | PDOC.CPN ---
- Subjective Date: 09/20/19 Time: 18:16 Interval history: He had afib overnight. Otherwise doing better. Had a BM twice today. - Review of Systems General: denies: fever/chills, weight/appetite/sleep changes, night sweats, fatigue Respiratory: denies: cough, congestion, shortness of breath, exercise intolerance Cardiovascular: denies: chest pain, palpitation, edema, paroxysmal nocturnal dyspnea, orthopnea Gastrointestinal: denies: nausea, vomiting, diarrhea, constipation, abd pain, GI bleeding Musculoskeletal: denies: pain, tenderness, stiffness, swelling, arthritis/ arthralgias Neurological: denies: numbness, syncope, seizure, weakness - Objective Allergies/Adverse Reactions: Allergies Allergy/AdvReac Type Severity Reaction Status Date / Time gabapentin Allergy Verified 09/14/19 16:40 pregabalin [From Lyrica] Allergy Verified 09/14/19 16:40 Visit Medications: Current Medications Acetaminophen (Tylenol) 650 mg PO Q6H PRN PRN Reason: Headache/Fever or Pain Hydrocodone Bitart/Acetaminophen ([place] 5/325) 1 tab PO Q4H PRN PRN Reason: Moderate Pain (4-6) Last Admin: 09/19/19 18:30 Dose: 1 tab Hydrocodone Bitart/Acetaminophen ([place] 5/325) 2 tab PO Q4H PRN PRN Reason: Severe Pain (7-10) Al Hydroxide/Mg Hydroxide (Maalox) 30 ml PO Q4H PRN PRN Reason: Indigestion Alprazolam (Xanax) 0.5 mg PO [facility] Last Admin: 09/19/19 20:37 Dose: 0.5 mg Aspirin (Ecotrin) 325 mg PO DAILY [facility] Last Admin: 09/20/19 08:33 Dose: 325 mg Atorvastatin Calcium (Lipitor) 40 mg PO [facility] Last Admin: 09/19/19 20:37 Dose: 40 mg Bisacodyl (Dulcolax) 10 mg PO Q12H PRN PRN Reason: Constipation Last Admin: 09/19/19 18:26 Dose: 10 mg Bisacodyl (Dulcolax) 10 mg [place] Q12H PRN PRN Reason: Constipation Carvedilol (Coreg) 3.125 mg PO BID[facility] Last Admin: 09/20/19 16:18 Dose: 3.125 mg Famotidine (Pepcid) 20 mg PO BID [facility] Last Admin: 09/20/19 08:33 Dose: 20 mg Fentanyl (Sublimaze) 25 mcg SLOW IVP Q2H PRN PRN Reason: Moderate breakthrough pain Furosemide (Lasix) 40 mg PO DAILY [facility] Last Admin: 09/20/19 08:33 Dose: 40 mg Guaifenesin/Dextromethorphan (Robitussin Dm) 15 ml PO Q4H PRN PRN Reason: Cough Mineral Oil (Fleet Mineral Oil) 133 ml [place] DAILYPRN PRN PRN Reason: Constipation Nitroglycerin (Nitrostat) 0.4 mg SL Q5MIN PRN PRN Reason: Chest Pain Ondansetron HCl (Zofran) 4 mg IVP Q6H PRN PRN Reason: Nausea/Vomiting Polyethylene Glycol (Miralax) 17 gm PO DAILY [facility] Last Admin: 09/20/19 08:33 Dose: 17 gm Potassium Chloride (Klor-Con 10) 10 meq PO QAM-WM [facility] Last Admin: 09/20/19 08:33 Dose: 10 meq Vital Signs & Weight: Vital Signs Temp Pulse Pulse Pulse Resp BP BP 09/20/19 15:38 98.4 F 86 16 09/20/19 14:29 96 95 139/74 127/66 09/20/19 11:14 98.3 F 95 18 09/20/19 10:35 102 H 89 165/80 H 138/75 09/20/19 08:02 98.7 F 102 H 18 BP Pulse Ox Pulse Ox Pulse Ox 09/20/19 15:38 142/77 H 95 09/20/19 14:29 09/20/19 11:14 127/66 96 09/20/19 10:35 98 96 09/20/19 08:02 136/66 95 Weight 198 lb 4 oz - Physical Exam General: alert & oriented x3 HEENT: mucus membranes moist Neck: supple neck Cardiac: regular rate and rhythm, no murmur Lungs: normal breath sounds Neuro: grossly intact Abdomen: active bowel sounds, soft, non-tender Extremities: no edema Skin: clear Musculoskeletal: no pain - Labs Result Diagrams: 09/19/19 03:50 09/19/19 03:50 - Telemetry Sinus rhythms and dysrhythmias: sinus rhythm Supraventricular conduction: atrial fibrillation - Assessment/Plan Assessment/Plan: 1. Multivessel CAD. 2. S/P CABG x 5 LEVY to LAD, SVG sequential to RPDA and PL, SVG sequential to D1 and D2, SVG to Intramyocardial Ramus. 3. Hyperlipidemia. 4. Post op afib/flutter, PLAN: - Doing well. - Increase PT as tolerated. - Aspirin and station for life. - Will up titrate BB and will add ACEI. - Will start Amiodarone load at 400 mg BID for 10 days then 200 mg dailyt after that for post op afib.
[2019-09-20] MEDS: Amiodarone 200 MG TAB PO SCH (21:30)
[2019-09-20] MEDS: ALPRAZolam 0.5 MG TAB PO SCH (21:30)
[2019-09-20] MEDS: Atorvastatin Calcium 40 MG TAB PO SCH (21:31)
[2019-09-21] MEDS ORDERED: Carvedilol 6.25 MG TAB PO SCH (08:00)
[2019-09-21 08:56] VITALS: TEMP 99.2
[2019-09-21] MEDS ORDERED: Lisinopril 2.5 MG TAB PO SCH (09:00)
[2019-09-21] MEDS: Amiodarone 200 MG TAB PO SCH (09:48)
[2019-09-21] MEDS: Potassium Chloride 10 MEQ TAB PO SCH (09:49)
[2019-09-21] MEDS: Famotidine 20 MG TAB PO SCH (09:49)
[2019-09-21] MEDS: Furosemide 40 MG TAB PO SCH (09:49)
[2019-09-21] MEDS: Aspirin 325 mg Enteric Coated Tablet PO SCH (09:49)
[2019-09-21] MEDS: HYDROcodone/Acetaminophen 5/325 mg Tablet PO PRN (09:53)
[2019-09-21] MEDS: Polyethylene Glycol 3350 17 GM Packet PO SCH (09:54)
[2019-09-21 12:34] VITALS: BP 140/67
--- NOTE | 2019-09-21 13:26 | DIS ---
DATE OF ADMISSION: 09/17/2019 DATE OF DISCHARGE: 09/21/2019 The patient was admitted on 09/17, where he underwent multivessel coronary artery bypass grafting with LEVY to the LAD, saphenous vein sequentially to the right PDA and right posterolateral and then saphenous vein sequentially to the diagonal branches 1 and 2 and saphenous vein graft to an intramyocardial posterolateral. Postoperatively, he had some paroxysmal atrial fibrillation, was placed on amiodarone and Coreg by Dr. Martins. He will be discharged and follow up with me in about 2 to 3 weeks. His incisions are healing well and he is ambulating in the halls without difficulty. Job ID: [id number]
--- NOTE | 2019-09-23 12:42 | EKG ---
Test Reason : POST CABG X 4 Blood Pressure : / mmHG Vent. Rate : 060 BPM Atrial Rate : 060 BPM P-R Int : 172 ms QRS Dur : 080 ms QT Int : 452 ms P-R-T Axes : 032 036 043 degrees QTc Int : 452 ms Normal sinus rhythm Possible Inferior infarct , age undetermined Abnormal ECG When compared with ECG of 25-MAR-2017 11:41, Borderline criteria for Inferior infarct are now Present Confirmed by FLOR ADORNO (2) on 09/23/2019 12:42:13 PM Referred By: SAMSON Confirmed By:FLOR ADORNO
== END 2019-09-21 12:35 | disposition home or self-care (01) | DRG 236 ==
LOC: SURG A 06:18 → CCU 12:36 → 2NO 09-19 14:30
PROVIDERS: ADMIT Thoracic Surgery (Cardiothoracic Vascular Surgery); ATTEND Thoracic Surgery (Cardiothoracic Vascular Surgery)
PROC: 02100Z9 Bypass Coronary Artery, One Artery from Left Internal Mammary, Open Approach (ICD-10-PCS; principal; 2019-09-17)
PROC: 021309W Bypass Coronary Artery, Four or More Arteries from Aorta with Autologous Venous Tissue, Open Approach (ICD-10-PCS; 2019-09-17)
PROC: 06BQ4ZZ Excision of Left Saphenous Vein, Percutaneous Endoscopic Approach (ICD-10-PCS; 2019-09-17)
PROC: 5A1221Z Performance of Cardiac Output, Continuous (ICD-10-PCS; 2019-09-17)
DX: I25.10 Atherosclerotic heart disease of native coronary artery without angina pectoris (principal); I97.190 Other postprocedural cardiac functional disturbances following cardiac surgery; I48.0 Paroxysmal atrial fibrillation; F41.9 Anxiety disorder, unspecified; Z96.652 Presence of left artificial knee joint; E78.5 Hyperlipidemia, unspecified; Z79.01 Long term (current) use of anticoagulants; Z90.49 Acquired absence of other specified parts of digestive tract; Z88.8 Allergy status to other drugs, medicaments and biological substances
CPT/HCPCS: 36415; 36416; 36430; 71045; 80048; 85025; 85610; 85730; 86850; 86900; 86901; 93005; 93010; 93798; J0690; J1100; J1265; J1642; J1644; J1815; J1885; J2001; J2250; J2405; J2440; J2704; J2720; J3010; J3370; J3475; J3480; P9045; S0017; S0028

== ENCOUNTER 2020-10-28 12:08 | Outpatient (CLI) | payer OTHER | END 2020-10-28 12:09 | disposition home or self-care (01) | LOC: ULT 12:08 | PROVIDERS: ATTEND Orthopaedic Surgery | DX: I25.10 Atherosclerotic heart disease of native coronary artery without angina pectoris (principal); I08.1 Rheumatic disorders of both mitral and tricuspid valves | CPT/HCPCS: 93306 ==

== ENCOUNTER 2021-03-06 10:01 | Outpatient (CLI) | payer MEDICARE | END 2021-03-06 10:02 | disposition home or self-care (01) | LOC: NM 10:01 | PROVIDERS: ATTEND Specialist | DX: T84.84XA Pain due to internal orthopedic prosthetic devices, implants and grafts, initial encounter (principal); M17.12 Unilateral primary osteoarthritis, left knee; Z96.652 Presence of left artificial knee joint | CPT/HCPCS: 78315; A9503 ==

== ENCOUNTER 2021-06-23 13:26 | Outpatient (CLI) | payer MEDICARE, OTHER | END 2021-06-23 13:27 | disposition home or self-care (01) | LOC: BICCT 13:26 | PROVIDERS: ATTEND Otolaryngology Otolaryngic Allergy | DX: K11.20 Sialoadenitis, unspecified (principal) | CPT/HCPCS: 70491; 82565 ==

== ENCOUNTER 2024-11-03 16:03 | Observation (INO) | payer MEDICARE, OTHER ==
[2024-11-03 16:53] LABS: #Basophils 0.06 10x3/uL (0.0-0.2); %Basophils 0.7 % (0.0-1.0); %Lymphocytes 20.8 % (21.0-51.0); %Monocytes 6.9 % (0.0-10.0); %Neutrophils 69.4 % (42.0-75.0); Hematocrit 44.5 % (42.0-52.0); Hemoglobin 14.7 g/dL (14.0-18.0); Mean Corpuscular Hemoglobin 29.1 pg (27.0-31.0); Mean Corpuscular Volume 87.9 fL (78.0-98.0); Mean Platelet Volume 9.9 fL (7.4-10.4); Platelet Count 225 10x3/uL (130-400); RBC Distribution Width 13.6 % (11.5-14.5); Red Blood Cell (RBC) Count 5.06 mill/uL (4.70-6.10)
[2024-11-03 17:12] LABS: ALT (SGPT) 10 U/L (8-55); AST (SGOT) 17 U/L (5-34); Albumin 4.2 g/dL (3.4-4.8); Alkaline Phosphatase 66 U/L (40-110); Anion Gap 13 mmol/L (10-20); BUN (Urea Nitrogen) 18 mg/dL (8.4-25.7); Bilirubin, Total 0.5 mg/dL (0.2-1.2); Calc. Creatinine Clearance 0 mL/min (70-130); Calcium 9.4 mg/dL (7.8-10.44); Carbon Dioxide 25 mmol/L (23-31); Chloride 104 mmol/L (98-107); Estimated GFR 50; Globulin 3.8 g/dL (2.4-3.5); Glucose 124 mg/dL (83-110); Lipase 42 U/L (8-78); Potassium 4.6 mmol/L (3.5-5.1); Sodium 137 mmol/L (136-145)
[2024-11-03] MEDS ORDERED: Aspirin Chewable 81 MG TAB ONE (17:24)
[2024-11-03] MEDS ORDERED: Nitroglycerin 2% Ointment 1 INCH/1 GM Packet ONE (18:15)
[2024-11-03 21:46] LABS: Troponin I Less than 0.010 ng/mL (< 0.028)
[2024-11-03] MEDS ORDERED: Calcium Carbonate 500 MG ChewTAB PO PRN (21:46)
[2024-11-03] MEDS ORDERED: Acetaminophen 650 MG Suppository PR PRN (21:46)
[2024-11-03] MEDS ORDERED: Ondansetron PF 4 MG/2 ML Vial IVP PRN (21:46)
[2024-11-03] MEDS: Acetaminophen 325 MG TAB PO PRN (22:31)
[2024-11-03] MEDS: Ketorolac Tromethamine 30 MG (1 mL) VIAL IVP SCH (23:20)
[2024-11-04 01:55] LABS: Troponin I Less than 0.010 ng/mL (< 0.028)
[2024-11-04 04:45] LABS: #Basophils 0.07 10x3/uL (0.0-0.2); %Eosinophils 4.6 % (0.0-10.0); %Lymphocytes 31.7 % (21.0-51.0); %Monocytes 9.8 % (0.0-10.0); %Neutrophils 52.8 % (42.0-75.0); Hematocrit 39.8 % (42.0-52.0); Hemoglobin 13.1 g/dL (14.0-18.0); Mean Corpuscular HGB CONC 32.9 g/dL (32.0-36.0); Mean Corpuscular Hemoglobin 28.5 pg (27.0-31.0); Mean Corpuscular Volume 86.5 fL (78.0-98.0); Mean Platelet Volume 9.8 fL (7.4-10.4); Platelet Count 182 10x3/uL (130-400); RBC Distribution Width 13.7 % (11.5-14.5)
[2024-11-04 05:01] LABS: Anion Gap 11 mmol/L (10-20); BUN (Urea Nitrogen) 20 mg/dL (8.4-25.7); Calc. Creatinine Clearance 56 mL/min (70-130); Calcium 8.7 mg/dL (7.8-10.44); Carbon Dioxide 23 mmol/L (23-31); Chloride 106 mmol/L (98-107); Estimated GFR 53; Glucose 112 mg/dL (83-110); Potassium 3.9 mmol/L (3.5-5.1); Sodium 136 mmol/L (136-145)
[2024-11-04] MEDS: Pantoprazole 40 MG DR.TAB PO SCH (09:28)
[2024-11-04] MEDS: Ondansetron ODT 4 MG TAB PO PRN (15:35)
[2024-11-04] MEDS: Aspirin 81 mg Enteric Coated Tablet PO SCH (20:58)
[2024-11-04] MEDS: Benzocaine/Menthol 1 LOZ LOZ PO PRN (23:09)
[2024-11-05 00:57] VITALS: BMI 29.9
[2024-11-05 05:41] LABS: #Basophils 0.06 10x3/uL (0.0-0.2); %Basophils 0.6 % (0.0-1.0); %Eosinophils 3.7 % (0.0-10.0); %Lymphocytes 18.6 % (21.0-51.0); %Monocytes 8.1 % (0.0-10.0); %Neutrophils 68.7 % (42.0-75.0); Hematocrit 41.3 % (42.0-52.0); Hemoglobin 13.6 g/dL (14.0-18.0); Mean Corpuscular HGB CONC 32.9 g/dL (32.0-36.0); Mean Corpuscular Hemoglobin 28.6 pg (27.0-31.0); Mean Corpuscular Volume 86.9 fL (78.0-98.0); Mean Platelet Volume 9.9 fL (7.4-10.4); Platelet Count 197 10x3/uL (130-400); RBC Distribution Width 13.4 % (11.5-14.5); Red Blood Cell (RBC) Count 4.75 mill/uL (4.70-6.10)
[2024-11-05 05:57] LABS: Anion Gap 12 mmol/L (10-20); BUN (Urea Nitrogen) 26 mg/dL (8.4-25.7); Calc. Creatinine Clearance 51 mL/min (70-130); Calcium 8.9 mg/dL (7.8-10.44); Carbon Dioxide 25 mmol/L (23-31); Chloride 106 mmol/L (98-107); Estimated GFR 48; Glucose 114 mg/dL (83-110); Potassium 4.4 mmol/L (3.5-5.1); Sodium 139 mmol/L (136-145)
[2024-11-05 08:06] VITALS: TEMP 97.9
[2024-11-05] MEDS: Sodium Chloride 0.9% 1,000 ML IV SCH (09:18)
[2024-11-05] MEDS ORDERED: Regadenoson 0.4 MG/5 ML SYRINGE ONE (11:29)
[2024-11-05 15:32] VITALS: BP 118/60
== END 2024-11-05 15:52 | disposition home or self-care (01) ==
LOC: ERS 16:03 → OBS 20:18
PROVIDERS: ADMIT Student in an Organized Health Care Education/Training Program; ATTEND Internal Medicine
DX: R06.09 Other forms of dyspnea (principal); I25.10 Atherosclerotic heart disease of native coronary artery without angina pectoris; E78.5 Hyperlipidemia, unspecified; K21.9 Gastro-esophageal reflux disease without esophagitis; I10 Essential (primary) hypertension; Z90.49 Acquired absence of other specified parts of digestive tract; Z95.1 Presence of aortocoronary bypass graft; Z98.52 Vasectomy status; Z96.642 Presence of left artificial hip joint; Z88.8 Allergy status to other drugs, medicaments and biological substances; Z98.890 Other specified postprocedural states
CPT/HCPCS: 71045; 78452; 80048 ×2; 80053; 83690; 83880; 84484 ×3; 85025 ×3; 85379; 93005; 93017; 96374; A9502; G0378 ×4; J1885; J2785 ×2; Q0162; 36415

== ENCOUNTER 2025-08-15 01:36 | Emergency (ER) | payer MEDICARE, OTHER ==
[2025-08-15 01:56] LABS: #Basophils 0.08 10x3/uL (0.0-0.2); #Eosinophils 0.29 10x3/uL (0.0-0.7); #Monocytes 0.59 10x3/uL (0.11-0.59); #Neutrophils 4.82 10x3/uL (1.40-6.50); %Basophils 1.0 % (0.0-1.0); %Eosinophils 3.5 % (0.0-10.0); %Lymphocytes 29.9 % (21.0-51.0); %Monocytes 7.1 % (0.0-10.0); %Neutrophils 58.4 % (42.0-75.0); Hematocrit 46.6 % (42.0-52.0); Hemoglobin 14.8 g/dL (14.0-18.0); Mean Corpuscular Hemoglobin 27.6 pg (27.0-31.0); Mean Corpuscular Volume 86.8 fL (78.0-98.0); Platelet Count 230 10x3/uL (130-400); Red Blood Cell (RBC) Count 5.37 mill/uL (4.70-6.10); White Blood Cell (WBC) Count 8.26 10x3/uL (4.8-10.8)
[2025-08-15 02:11] LABS: ALT (SGPT) 9 U/L (Less than 45); AST (SGOT) 16 U/L (11-34); Albumin 4.2 g/dL (3.1-4.5); Alkaline Phosphatase 68 U/L (40-110); Anion Gap 14 mmol/L (10-20); BUN (Urea Nitrogen) 15 mg/dL (8.4-25.7); Bilirubin, Total 0.4 mg/dL (0.3-1.2); Calc. Creatinine Clearance 0 mL/min (70-130); Calcium 9.2 mg/dL (7.8-10.44); Carbon Dioxide 26 mmol/L (23-31); Chloride 105 mmol/L (98-107); Globulin 3.4 g/dL (2.4-3.5); Glucose 144 mg/dL (83-110); Potassium 4.0 mmol/L (3.5-5.1); Sodium 141 mmol/L (136-145)
[2025-08-15] MEDS ORDERED: Acetaminophen 500 MG TAB ONE (03:09)
[2025-08-15] MEDS ORDERED: Metoclopramide HCl 10 MG (2 mL) VIAL ONE (03:09)
[2025-08-15] MEDS ORDERED: diphenhydrAMINE 50 MG/ML VIAL ONE (03:09)
[2025-08-15] MEDS ORDERED: Lisinopril 5 MG TAB ONE (03:10)
[2025-08-15] MEDS ORDERED: Ketorolac Tromethamine 30 MG (1 mL) VIAL ONE (03:10)
== END 2025-08-15 06:33 | disposition home or self-care (01) ==
LOC: ERS 01:36
DX: R51.9 Headache, unspecified (principal); I12.9 Hypertensive chronic kidney disease with stage 1 through stage 4 chronic kidney disease, or unspecified chronic kidney disease; N18.9 Chronic kidney disease, unspecified; R29.700 NIHSS score 0; Z55.6 Problems related to health literacy
CPT/HCPCS: 70450; 80053; 84484; 85025; 93005; J1200; J1885; J2765; 96365; 96375